=== PATIENT | male | born 1975 | race Caucasian/White ===

== ENCOUNTER 2020-11-06 19:58 | Emergency (ER) | payer OTHER ==
[2020-11-06 21:20] LABS: HEMOGLOBIN 13.4 gm/dl (14.0-17.5); RED BLOOD COUNT 4.05 M/UL (4.20-5.50); WHITE BLOOD COUNT 4.1 K/UL (4.5-11.0)
[2020-11-06 21:32] LABS: BUN/CREATININE RATIO 21 (0-10)
[2020-11-06] MEDS ORDERED: BENTYL 20MG TAB20 MG PO (22:27)
[2020-11-06] MEDS ORDERED: ZOFRAN ODT 4 MG4 MG PO (22:27)
[2020-12-24] MEDS ORDERED: PRILOSEC10 M1 PO (08:40)
[2020-12-24] MEDS ORDERED: SUBOXONE 8 MG-1 EACH SL (08:40)
[2020-12-24] MEDS ORDERED: VRAYLAR6 MG PO (08:41)
== END 2020-11-06 22:38 | disposition home or self-care (01) ==
LOC: ER1 19:58
PROVIDERS: Physician Assistant Medical
DX: K74.60 Unspecified cirrhosis of liver (principal); R18.8 Other ascites; Z90.89 Acquired absence of other organs; Z79.899 Other long term (current) drug therapy; F17.210 Nicotine dependence, cigarettes, uncomplicated
CPT/HCPCS: 80053; 81001; 83605; 83690; 85025; 85652; 86140; 96374; 96375; 99284; C9113; J2405; J7030; Q9967

== ENCOUNTER 2020-12-01 16:55 | Emergency (ER) | payer OTHER ==
[~2020-12-01 16:55] MED LIST: BENTYL 20MG TAB20 MG PO; ZOFRAN ODT 4 MG4 MG PO
[2020-12-01 19:34] LABS: HEMOGLOBIN 13.5 gm/dl (14.0-17.5); RED BLOOD COUNT 4.09 M/UL (4.20-5.50); WHITE BLOOD COUNT 4.2 K/UL (4.5-11.0)
[2020-12-01 20:01] LABS: BUN/CREATININE RATIO 16 (0-10)
[2020-12-24] MEDS ORDERED: SUBOXONE 8 MG-1 EACH SL (08:40)
[2020-12-24] MEDS ORDERED: PRILOSEC10 M1 PO (08:40)
[2020-12-24] MEDS ORDERED: VRAYLAR6 MG PO (08:41)
== END 2020-12-01 20:56 | disposition left against medical advice (07) ==
LOC: ER1 16:55
PROVIDERS: Emergency Medicine
DX: D61.818 Other pancytopenia (principal); R06.00 Dyspnea, unspecified; R94.5 Abnormal results of liver function studies; F17.290 Nicotine dependence, other tobacco product, uncomplicated; Z20.822 Contact with and (suspected) exposure to COVID-19
CPT/HCPCS: 71045; 80053; 80307; 82140; 82550; 82553; 83605; 83690; 83874; 83880; 84484; 85025; 85610; 85730; 93005; 99284; U0002

== ENCOUNTER → 2020-12-24 | Day surgery (SDC) | payer OTHER ==
[~2020-12-24] MED LIST changes: +PRILOSEC10 M1 PO; +SUBOXONE 8 MG-1 EACH SL; +VRAYLAR6 MG PO
[2020-12-24 08:13] LABS: RED BLOOD COUNT 4.17 M/UL (4.20-5.50); WHITE BLOOD COUNT 4.3 K/UL (4.5-11.0)
[2020-12-25 10:14] LABS: HBSAG SCREEN Positive (Negative); HEP A AB, IGM Negative (Negative); HEP B CORE AB, IGM Negative (Negative); HEP C VIRUS AB >11.0 (0.0-0.9)
[2020-12-25 15:14] LABS: MITOCHONDRIAL (M2) ANTIBODY <20.0 Units (0.0-20.0)
[2020-12-27 17:12] LABS: TRYPSIN 303 ng/mL (169-773)
== END | disposition home or self-care (01) ==
LOC: OR 07:25
PROVIDERS: Internal Medicine Gastroenterology
DX: K76.6 Portal hypertension (principal); K31.89 Other diseases of stomach and duodenum; K29.70 Gastritis, unspecified, without bleeding; K74.60 Unspecified cirrhosis of liver; B18.1 Chronic viral hepatitis B without delta-agent; B18.2 Chronic viral hepatitis C; J44.9 Chronic obstructive pulmonary disease, unspecified; F17.210 Nicotine dependence, cigarettes, uncomplicated
CPT/HCPCS: 36415; 80074; 80076; 82728; 83519; 83540; 83550; 85027; 86038; J2704; J7040